=== PATIENT | female | born 1950 | race Caucasian/White ===

== ENCOUNTER 2019-06-05 10:49 | Outpatient (CLI) | payer MEDICARE | END 2019-06-05 23:59 | disposition home or self-care (01) | LOC: CFH 10:49 | PROVIDERS: ATTEND Obstetrics & Gynecology | DX: Z12.31 Encounter for screening mammogram for malignant neoplasm of breast (principal) | CPT/HCPCS: 77063; 77067 ==

== ENCOUNTER 2020-07-18 08:59 | Outpatient (CLI) | payer MEDICARE | END 2020-07-18 23:59 | disposition home or self-care (01) | LOC: CFH 08:59 | PROVIDERS: ATTEND Obstetrics & Gynecology | DX: Z12.31 Encounter for screening mammogram for malignant neoplasm of breast (principal) | CPT/HCPCS: 77063; 77067 ==